=== PATIENT | female | born 1960 | race Caucasian/White ===

== ENCOUNTER 2018-11-10 16:37 | Inpatient (IN) | payer OTHER ==
[~2018-11-10] VITALS: Ht 172.7 cm; Wt 70.9 kg
--- NOTE | ~2018-11-10 | HC ---
[facility] [place] [address] CONSULTATION Name: PAUL LOGAN Reynaldo Room #: 251-P [facility] IN ..#: [id number] Admission: 11/10/18 ������������������ Attend Phys: Federico Shirley MD Discharge: ������������������ Date of : 62 Report #: [id number] THIS REPORT FOR: //name// CC: Federico Shirley [facility] unknown DATE OF SERVICE: 11/26/2018 HISTORY OF PRESENT ILLNESS: The patient is a 57-year-old white female who tripped on a cat, her left chest wall and a dresser. She was admitted with complaint of weakness and had some recent diarrhea and had 4 shots of vodka. She was noted to have presyncope with multiple left rib fractures. She had pulmonary infiltrates developed respiratory failure and ended up being intubated on 11/14/2018. She was noted to have pneumonia, ARDS, CHF. She is noted to have MSSA pneumonia. She has had problems with encephalopathy, thought to be toxic metabolic. She was seen by Psychiatry. Did not appear in withdrawal when seen by Psychiatry with the length of her hospital stay, but low dose Respirdal was recommended to help. She was intubated from 11/14/2018 through 11/25/2018 and has now been extubated, continues in the ICU, was on nasal prong O2. She has had some recent agitation/combativeness and currently has a sitter in place. We are seeing her in rehabilitation medicine consultation. PAST MEDICAL HISTORY: Bipolar disorder, borderline personality, ADHD, severe anxiety. MEDICATIONS: Please see the full medication listing. This includes vitamins, herbals, and supplements per report. HABITS: Daily tobacco usage apparently 1-2 cigarettes per day. ETOH is 1-4 drinks per day. SOCIAL HISTORY: Noted to live in a house alone, 2-3 steps and laundry in the basement. She is noted to be disabled with mental health issues and ETOH issues. She is estranged from family including her sister and her son. Apparently is on the verge of losing her house. Review of systems notes her chest wall pain is better. REVIEW OF SYSTEMS: No complaints of abdominal discomfort. Current shortness of breath, focal extremity pain complaints. PHYSICAL EXAMINATION: GENERAL: A 57-year-old white female seen in the intensive care unit. She has a sitter in place. VITAL SIGNS: Temperature 36.3, pulse 75, respirations 18, blood pressure 127/71. The patient is sleepy, but easily will arouse. [address] [address] CONSULTATION Name: PAUL LOGAN Room #: 251-P [facility] IN [facility]#: [id number] Admission: 11/10/18 ������������������ Attend Phys: Federico Shirley MD Discharge: ������������������ Date of : 62 Report #: [id number] NEUROLOGIC: She was incorrect regarding the name of the hospital. In correct regarding the year. She does follow basic 1 step commands. EXTREMITIES: Functional range of motion of the upper extremity, strength is a grade 4-/5. Lower extremities, no focal calf swelling, functional range of motion with strength grade 4-/5. ASSESSMENT: A 57-year-old white female with the following problems: 1. Toxic metabolic encephalopathy. 2. Dysphagia, currently on mechanical soft with nectar thickened liquids. 3. Prolonged respiratory failure with prolonged intubation, mechanical ventilation. 4. Pneumonia MSSA. 5. Acute respiratory distress syndrome. 6. Congestive heart failure. 7. Multiple left rib fractures after original fall against a dresser. 8. Bipolar disorder. 9. History of borderline personality. 10. Attention deficit hyperactivity disorder. 11. History of severe anxiety. 12. ETOH abuse. 13. Tobacco abuse. PLAN: Physical therapy is to evaluate. She currently has one-on-one sitter currently in the intensive care unit. Social support limited in home setting. We will be glad to follow along regarding rehab therapy issues. ��������������������������������������������� ���������������������������������������� By: ��������������������������������������������� 1051 [id number] Julio Jimenez MD /PMT
[~2018-11-10 16:37] MED LIST: BUPROPION XL150 MG PO; CLONAZEPAM 0.50.5 M1 PO; COREG6.25 MG PO
[2018-11-10 16:43] VITALS: BP 151/87
[2018-11-10] MEDS ORDERED: LISINOPRIL10 MG PO (16:50)
[2018-11-10 17:49] LABS: HEMATOCRIT 41.7 % (37.0-47.0); HEMOGLOBIN 14.8 gm/dL (12.0-15.0); MCH 33.2 pg (26.0-34.0); MCHC 35.4 g/dL (28.0-37.0); MCV 93.7 fL (80.0-100.0); RBC 4.45 mil/uL (4.20-5.00); RDW 14.8 % (10.5-14.5); WBC 8.9 thou/uL (4.0-11.0)
[2018-11-10 18:02] LABS: CALCIUM 9.4 mg/dL (8.5-10.1); CREATININE 1.2 mg/dL (0.6-1.0); POTASSIUM 3.5 mmol/L (3.5-5.1)
[2018-11-10 19:14] VITALS: BP 105/69
[2018-11-10 19:21] VITALS: BP 110/70
[2018-11-10 19:54] VITALS: BP 146/84
[2018-11-10] MEDS ORDERED: ZOLOFT25 MG PO (20:26)
[2018-11-11 00:39] VITALS: BP 146/84
[2018-11-11 00:45] VITALS: BP 157/101
--- NOTE | 2018-11-11 04:12 | NUR ---
PT ARRIVED UNIT AT ABOUT 1950. PT A/OX4, VITAL SIGNS STABLE. PT COMPLAINED OF SEVERE PAIN FROM HER FRACTURED RIBS AND SHOULDER. PT VERBALIZED THAT THE PAIN MEDICATIONS GIVEN TO HER IN THE ER DID NOT SEEM TO BE WORKING. ICE, REPOPSITIONING AND DISTRACTING WELL PAIN MEDICATION WAS USED FOR ADEQUATE PAIN MANGEMENT.AT ABOUT 0400, PT VERBALIZED SHE STILL HAD PAIN MUCH PAIN BUT SHE WAS ABLE TO TOLERATE IT BETTER AND REPOSITION HERSELF IN BED. ASSESSMENT CHARTED. ADMISSION PACKET PROVIDED. EDUCATION PROVIDED ABOUT SAFETY MEASURES INVOLVING TELEMETRY MONITORING. PT RESTING COMFORTABLY IN BED. WILL CONTINUE WITH ADEQAUTE PAIN MANAGEMENT. CONTINUE TO MONITOR.
[2018-11-11 04:45] VITALS: BP 126/73
[2018-11-11 04:53] LABS: HEMATOCRIT 37.5 % (37.0-47.0); MCH 32.3 pg (26.0-34.0); MCHC 34.2 g/dL (28.0-37.0); MCV 94.5 fL (80.0-100.0); RBC 3.97 mil/uL (4.20-5.00); RDW 14.8 % (10.5-14.5); WBC 7.9 thou/uL (4.0-11.0)
[2018-11-11 04:59] LABS: CALCIUM 8.4 mg/dL (8.5-10.1); CREATININE 1.2 mg/dL (0.6-1.0); POTASSIUM 3.2 mmol/L (3.5-5.1)
[2018-11-11 05:11] LABS: HEMOGLOBIN 12.8 gm/dL (12.0-15.0)
--- NOTE | 2018-11-11 09:36 | EKG ---
[address] [address] ELECTROCARDIOGRAM REPORT Name: PAUL LOGAN Room #: 209-P ADM IN M.R.#: [id number] ������������������ Admission: 11/10/18 ������������������ Attend Phys: Federico Shirley MD Discharge: ������������������ Date of : 62 Report #: [id number] ����������������������������������������������������������������� [id number] THIS REPORT FOR: //name// [facility] ED Test Date: 2018-11-10 Test Time: 17:42:05 Pat Name: PAUL LOGAN Department: Room: 209 Gender: F Bread Wrapper: DAVID : 1960 Requested By: Nehal Dumont Order Number: [id number] MD: Paco Villanueva Measurements Intervals [place] Rate: 74 P: 42 NC: 166 QRS: 0 QRSD: 96 T: 75 QT: 428 QTc: 475 Interpretive Statements Sinus rhythm Probable left atrial enlargement Abnrm T, consider ischemia, anterolateral lds Compared to ECG 04/16/2016 15:40:43 Left ventricular hypertrophy no longer present Electronically Signed On 11-11-2018 9:36:02 CDT by Paco Villanueva [email or web address] ��������������������������������������������� <ELECTRONICALLY SIGNED> ���������������������������������������� By: Paco Villanueva MD ��������������������������������������������� 11/11/18 0936 41 [id number] Paco Villanueva MD /LUIS
--- NOTE | 2018-11-11 12:18 | 2DMMODE ---
[facility] [address] [place] [address] 2 D/M-MODE ECHOCARDIOGRAM Name: PAUL LOGAN Room #: 209-P [facility]#: [id number] ������������� Admission: 11/10/18 ������������� Attend Phys: Federico Shirley MD Discharge: ��� ������������� ��� Date of : 62 Date of Service: 11/11/18 1218 �� Report #: [id number] �������� ��������������������������������������������[id number] THIS REPORT FOR: //name// APPROVED REPORT Study performed: 11/11/2018 10:47:20 EXAM: Comprehensive 2D, Doppler, and color-flow Echocardiogram Patient Location: Bedside Room #: 209 Status: routine BSA: 1.86 HR: 77 bpm BP: 126/73 mmHg Rhythm: NSR Other Information Study Quality: Adequate Indications Syncope Hypertension/HDD 2D Dimensions RVDd: 35.25 mm IVSd: 11.10 (7-11mm) LVOT Diam: 20.77 (18-24mm) LVDd: 44.49 mm PWd: 10.72 (7-11mm) Ascending Ao: 28.07 (22-36mm) LVDs: 29.34 (25-40mm) Aortic Root: 33.90 mm IVC: 22.00 mm Volumes Left Atrial Volume (Systole) Single Plane 4CH: 36.35 mL Single Plane 2CH: 29.36 mL LA ESV Index: 21.00 mL/m2 Aortic Valve AoV Peak Bulmaro.: 1.50 m/s AO Peak Gr.: 9.00 mmHg LVOT Max P.25 mmHg LVOT Max V: 1.25 m/s MARTELL Vmax: 2.82 cm2 Mitral Valve E/A Ratio: 0.8 MV Decel. Time: 319.15 ms [facility] [address] [place] [address] 2 D/M-MODE ECHOCARDIOGRAM Name: DOREENPAUL L Room #: 209-P [facility]#: [id number] ������������� Admission: 11/10/18 ������������� Attend Phys: Federico Shirley MD Discharge: ��� ������������� ��� Date of : 62 Date of Service: 11/11/18 1218 �� Report #: [id number] �������� ��������������������������������������������[id number] E Max Bulmaro.: 0.82 m/s MV A Bulmaro.: 1.06 m/s MV PHT: 92.55 ms IVRT: 115.34 ms Pulmonary Valve PV Peak Bulmaro.: 0.93 m/s PV Peak Gr.: 3.53 mmHg Pulmonary Vein P Vein S: 0.65 m/s P Vein A: 0.33 m/s P Vein D: 0.35 m/s P Vein A Dur.: 124.6 msec P Vein S/D Ratio: 1.86 Tricuspid Valve TR Peak Bulmaro.: 3.01 m/s TR Peak Gr.: 36.26 mmHg PA Pressure: 46.00 mmHg Left Ventricle The left ventricle is normal size. There is normal LV segmental wall motion. There is normal left ventricular wall thickness. Left ventricular systolic function is normal. The left ventricular ejection fraction is within the normal range. LVEF is 60-65%. Grade I - abnormal relaxation pattern. Right Ventricle The right ventricle is normal size. The right ventricular systolic function is normal. Atria The left atrium size is normal. The right atrium size is normal. Aortic Valve The aortic valve is normal in structure. No aortic regurgitation is present. There is no aortic valvular stenosis. Mitral Valve The mitral valve is normal in structure. Trace mitral regurgitation. No evidence of mitral valve stenosis. Tricuspid Valve The tricuspid valve is normal in structure. There is trace tricuspid regurgitation. Estimated PAP 42 mmHg. Pulmonic Valve [address] [address] 2 D/M-MODE ECHOCARDIOGRAM Name: PAUL LOGAN Reynaldo Room #: 209-P [facility] IN ..#: [id number] ������������� Admission: 11/10/18 ������������� Attend Phys: Federico Shirley MD Discharge: ��� ������������� ��� Date of : 62 Date of Service: 11/11/18 1218 �� Report #: [id number] �������� ��������������������������������������������[id number] The pulmonary valve is normal in structure. There is no pulmonic valvular regurgitation. Great Vessels The aortic root is normal in size. IVC is dilated and collapses <50% with inspiration. Pericardium There is no pericardial effusion. <Conclusion> The left ventricle is normal size. There is normal left ventricular wall thickness. Left ventricular systolic function is normal. Grade I - abnormal relaxation pattern. The right ventricle is normal size. The left atrium size is normal. The aortic valve is normal in structure. Trace mitral regurgitation. There is trace tricuspid regurgitation. Estimated PAP 42 mmHg. ��������������������������������������������� <ELECTRONICALLY SIGNED> ���������������������������������������� By: Paco Villanueva MD ��������������������������������������������� 11/11/18 1218 Paco Villanueva MD /INF
[2018-11-11 12:33] VITALS: BP 136/70
--- NOTE | 2018-11-11 15:11 | NUR ---
Assumed pt care at 7am.Pt in bed very restless related to back and left ribs pain.Medication given as ordered with no relief.Dr Shirley notified,order noted. Additional pain shot given.Around 9:30am,pt piv was not flushing.New piv placed by this rn.One hour later,pt called out and reported that she accidentally dc iv when getting out of bed.Iv team replaced it.30 minutes after,pt called out again and said she accidentally dc iv when combing hair. Dr Shirley notified and he said po med should be given for now and when pt cooperate with keeping piv,dilaudid rip saw operator can be started.Benadryl iv given as needed for itching.Pt in bed sleeping at present.Will continue to monitor.
--- NOTE | 2018-11-11 15:45 | NUR ---
Assumed pt care at 7am.Assessment completed.vss.Pt c/o chest tightness and morphine ivp given as ordered with zofran,partial relief noted.Hayley harkins pediatric np here and order noted.Pt ate breakfast and kept npo for lunch.Family called for updates.At 1530,pt left for gold leaf laborer in stable condition.
[2018-11-11 17:02] VITALS: BP 120/93
[2018-11-11 20:15] VITALS: BP 142/90
[2018-11-12] VITALS (17 sets, daily range): BP systolic 89–147; BP diastolic 43–96
--- NOTE | 2018-11-12 03:43 | NUR ---
ASSUMED PT CARE AT 1900. PT A/OX4, ANXIOUS, VITAL SIGNS STABLE, ASSESSMENT CHARTED. PAIN MANAGED WITH PAIN MEDICATION. PT COMPLAINED OF A BRIEF EPISODE OF SOA, O2 SAT 88%. 2L O2 GIVEN, O2 SAT IMPROVED. PT UNCOMFORTABLE AND DID NOT SEEM TO GET MUCH PAIN RELIEF. REPOSITIONING, ICE PACK USED FOR PAIN RELIEF. PT WAS ABLE TO REST BRIEFLY. FOLLOWING NURSING POC. WILL CONTINUE TO MONITOR.
--- NOTE | 2018-11-12 09:56 | NUR ---
Assess due to high nutrition screening risk trigger. Admitted following fall with rib fractures, syncopal episodes. Hx bipolar, +tobacco, +etoh use. States appetite poor just recently, and wt may be down few pounds. Did not feel like breakfast this am. Would like to trial some Ensure-will order. Otherwise low nutrition risk
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
[2018-11-12 16:17] LABS: BE(vivo) -9.1 mmol/L (-2 to +3); HCO3 19.5 mmol/L (22.0-26.0); PCO2 53.7 mmHg (35.0-45.0); PO2 58.3 mmHg (80.0-100.0); pH 7.179 (7.360-7.450); sO2 82.9 % (92.0-98.0)
[2018-11-12 16:52] LABS: HEMATOCRIT 39.8 % (37.0-47.0); HEMOGLOBIN 13.2 gm/dL (12.0-15.0); MCH 32.4 pg (26.0-34.0); MCHC 33.2 g/dL (28.0-37.0); MCV 97.5 fL (80.0-100.0); RBC 4.08 mil/uL (4.20-5.00); RDW 15.2 % (10.5-14.5); WBC 13.9 thou/uL (4.0-11.0)
--- NOTE | 2018-11-12 17:02 | NUR ---
PT CARE ASSUMED APPROX 0700. PT WAS ALERT AND ORIENTED X4 WITH FORGETFULNESS. DENIES SOA. REPORTS PAIN 10/[address] NARAYANAN ROUNDED EARLY AND INCREASED MEDS TO ATTEMPT ADEQUATE PAIN MANAGEMENT. ATIVAN ALSO GIVEN PER ORDERS. IT WAS NOTED AROUND 1205 THAT PT WAS CYANOTIC AND UNRESPONSIVE. WELFARE SERVICE AIDE OBTAINED VS WHILE NONREBREATHER WAS PLACED TO PT BY NURSE. NARCAN ADMINISTERED. O2 SAT WAS NOTED TO BE IN 50%. SAT REASSESSED WITH DIFFERENT PULSE OXIMETER AND SAT LEVEL WAS CONFIRMED AT 50%. NARCAN STARTED TO TAKE AFFECT, DR NARAYANAN WAS NOTIFIED. ORDERS WERE FOR CONT BEDSIDE PULSE OX AND CXR. R/T CAME TO BEDSIDE TO PLACE. PT RECOVERED IN APPROX 15 MIN. SAT WAS MAINTAINED AT 91-94% ON 15L NONREBREATHER. PT EASILY AROUSABLE AT THIS TIME. BREATHS REMAIN SHALLOW. AT APPROX 1550 WAS PAGED AGAIN BECAUSE DESPITE PT BEING AWAKE AND BREATHING MORE ADEQUATELY THAN BEFORE HER O2 SAT BEGAN TO DROP AND SUSTAIN IN LOW 80S. DR NARAYANAN ORDERED ABGs. ABGs CRITICAL WITH NOTED RESP ACIDOSIS. BIPAP AND ICU TRANSFER ORDERED. MESSAGE LEFT FOR ICU TO CALL CCU FOR REPORT WHEN AVAILABLE. ON BIPAP AT THIS TIME. PT CLINICALLY STABLE. PT WAS ALSO HYPERTENSIVE VS OTHERWISE STABLE. DR NARAYANAN WAS NOTIFIED OF OF ELEVATED BP AND LACK OF URINE OUTPUT. EMERGENCY CONTACT RAY WAS CALLED AND GIVEN CLINICAL UPDATE AND ICU BED NUMBER. HE DENIES QUESTIONS OR CONCERNS AT THIS TIME. RAY AT BEDSIDE AT THIS TIME. BP ALSO WNL AT THIS TIME. PT MORE ALERT. DOES NOT APPEAR TO BE IN PAIN AT THIS TIME.
[2018-11-12 17:06] LABS: CREATININE 0.8 mg/dL (0.6-1.0); POTASSIUM 4.7 mmol/L (3.5-5.1)
[2018-11-12 19:01] LABS: URINE BILIRUBIN NEGATIVE (Negative); URINE BLOOD 1+ (Negative); URINE CLARITY CLEAR; URINE COLOR YELLOW; URINE GLUCOSE-RANDOM* 2+ (Negative); URINE KETONES TRACE (Negative); URINE LEUKOCYTES-REFLEX NEGATIVE (Negative); URINE NITRITE-REFLEX NEGATIVE (Negative); URINE PROTEIN (DIPSTICK) TRACE (Negative); URINE SPECIFIC GRAVITY >= 1.030 (1.005-1.035); URINE UROBILINOGEN 0.2 E.U./dl (0.2-1.0)
[2018-11-12 19:08] LABS: BACTERIA-REFLEX >30 Many /HPF (None Seen); SQUAMOUS 0-3 Few /LPF (0-3); URINE RBC 0-2 Rare /HPF (0-2); URINE WBC-REFLEX 0-5 Rare /HPF (0-5)
[2018-11-12 19:09] LABS: CRYSTALS None Seen /LPF (None Seen); HYALINE CASTS 0-3 Few /LPF (None Seen)
[2018-11-12 23:36] LABS: BE(vivo) -2.8 mmol/L (-2 to +3); HCO3 22.5 mmol/L (22.0-26.0); PCO2 40.7 mmHg (35.0-45.0); PO2 50.8 mmHg (80.0-100.0); sO2 84.7 % (92.0-98.0)
[2018-11-13] VITALS (38 sets, daily range): BP systolic 86–124; BP diastolic 43–95
[2018-11-13 04:35] LABS: ABSOLUTE NEUTROPHILS 6.5 thou/uL (1.4-8.2); BASOPHILS 0.2 % (0.0-2.0); EOSINOPHILS 0.2 % (0.0-3.0); HEMATOCRIT 31.3 % (37.0-47.0); LYMPHOCYTES 6.9 % (24.0-44.0); MCH 33.3 pg (26.0-34.0); MCHC 34.4 g/dL (28.0-37.0); MCV 96.9 fL (80.0-100.0); MONOCYTES 2.6 % (1.0-8.0); PLATELET COUNT 149 thou/uL (150-400); POLYS 90.1 % (36.0-66.0); RBC 3.23 mil/uL (4.20-5.00); RDW 14.8 % (10.5-14.5); WBC 7.3 thou/uL (4.0-11.0)
[2018-11-13 04:38] LABS: HEMOGLOBIN 10.8 gm/dL (12.0-15.0)
[2018-11-13 06:20] LABS: CALCIUM 8.4 mg/dL (8.5-10.1); POTASSIUM 4.2 mmol/L (3.5-5.1)
--- NOTE | 2018-11-13 07:29 | NUR ---
PATIENT TRANFERRED TO ICU; DUE TO CHANGE IN STATUS, ON HOLD FOR OCCUPATIONAL THERAPY; NEED NEW PHYSICIAN ORDERS IF/WHEN APPROPRIATE.
--- NOTE | 2018-11-13 07:52 | NUR ---
PT ARRIVED IN ICU FROM CCU AT SHIFT CHANGE. PT ON BIPAP WITH 100% FIO2. SHORTLY AFTER ARRIVAL, PT BECAME MORE ALERT, C/O PAIN AND ASKING FOR SOMETHING TO DRINK. FIO2 TITRATED DOWN TO 40% WITHIN TWO HOURS. PT WANTED BIPAP OFF AND WAS TRIED ON HIGH FLOW CANNULA AT 12L O2. ABG OBTAINED AN HOUR LATER AND PO2 CRITICALLY LOW. PT PLACED ON NRB MASK AT 15L IN ADDITION TO NASAL CANNULA. PT WOULD PULL NRB MASK OFF AT TIMES AND O2 WOULD DESAT QUICKLY. PT BECAME MORE CONFUSED THIS MORNING AND CONTINUED TO PULL MASK OFF ALONG WITH OTHER MEDICAL EQUIPMENT. PT PLACED BACK ON BIPAP WITH 80% FIO2. PT PUT IN BILATERAL SOFT WRIST RESTRAINTS AFTER PULLING OFF BIPAP MASK. PT GIVEN NORCO X2 OVERNIGHT FOR PAIN. ONETIME ORDER OF TORADOL OBTAINED FROM SYSTEM ENGINEER AND GIVEN TO PT, WITH SOME RELIEF. WILL CONTINUE TO MONITOR.
--- NOTE | 2018-11-13 07:57 | NUR ---
ORDERS RECEIVED FOR EVAL AND TREAT HOWEVER Pt HAS NOW TRANSFERRED TO ICU. WILL PLACE ON HOLD AND AWAIT NEW ORDERS TO RESUME WHEN APPROPRIATE
[2018-11-13 12:40] LABS: ABSOLUTE NEUTROPHILS 6.2 thou/uL (1.4-8.2); BASOPHILS 0.3 % (0.0-2.0); EOSINOPHILS 0.4 % (0.0-3.0); HEMATOCRIT 30.8 % (37.0-47.0); HEMOGLOBIN 10.7 gm/dL (12.0-15.0); LYMPHOCYTES 6.5 % (24.0-44.0); MCH 33.6 pg (26.0-34.0); MCHC 34.7 g/dL (28.0-37.0); MCV 96.9 fL (80.0-100.0); MONOCYTES 3.3 % (1.0-8.0); PLATELET COUNT 147 thou/uL (150-400); POLYS 89.5 % (36.0-66.0); RBC 3.17 mil/uL (4.20-5.00); RDW 14.9 % (10.5-14.5)
[2018-11-13 13:01] LABS: CALCIUM 8.4 mg/dL (8.5-10.1); CREATININE 0.9 mg/dL (0.6-1.0); POTASSIUM 3.7 mmol/L (3.5-5.1)
[2018-11-13 13:05] LABS: ALBUMIN 2.6 g/dL (3.4-5.0); MAGNESIUM 1.6 mg/dL (1.8-2.4); PHOSPHORUS 3.1 mg/dL (2.5-4.9); TOTAL PROTEIN 5.7 g/dL (6.4-8.2)
[2018-11-13 13:22] LABS: FOLIC ACID 3.6 ng/mL (8.6-58.9)
[2018-11-13 13:40] LABS: URINE BLOOD 3+ (Negative); URINE COLOR YELLOW; URINE GLUCOSE-RANDOM* NEGATIVE (Negative); URINE KETONES NEGATIVE (Negative); URINE LEUKOCYTES TRACE (Negative); URINE NITRITE POSITIVE (Negative); URINE PROTEIN (DIPSTICK) 1+ (Negative); URINE SPECIFIC GRAVITY >= 1.030 (1.005-1.035)
[2018-11-13 13:43] LABS: ICTOTEST (BILI CONFIRMATORY) Negative (Negative); URINE BILIRUBIN NEGATIVE (Negative); URINE CLARITY SL HAZY
[2018-11-13 13:48] LABS: SQUAMOUS 0-3 Few /LPF (0-3); URINE WBC 6-15 Few /HPF (0-5)
[2018-11-13 13:49] LABS: BACTERIA >30 Many /HPF (None Seen); CASTS None Seen /LPF (None Seen); CRYSTALS None Seen /LPF (None Seen)
--- NOTE | 2018-11-13 14:07 | NUR ---
ASSUMED CARE AT 0700. AT SHIFT CHANGE PT WAS ABLE TO STATE NAME AND THAT SHE WAS IN HOSPITAL. PT WAS VERY AGITATED AND IN PAIN. PT GIVEN MEDICATION FOR BOTH ORDERED. PT THEN SLEPT FROM APPROXIMATELY 0930 TO 1215. WHEN PT WOKE UP SHE WAS VERY AGITATED AGAIN AND STATING SHE DOESN'T KNOW WHERE SHE IS AT. PT REORIENTED TO SITUATION BUT PT STILL SEEMS VERY AGITATED. PT BEGAN TRYING TO PULL AT CHÁVEZ CATHETER. PT WAS ABLE TO GET SCD'S OFF WITH USE OF HER LEGS AND FEET. PT HAS BILAT SOFT WRIST RESTRAINTS IN PLACE. EVEN WITH RESTRAINTS ON PT MANAGED TO PULL STAT LOCK OFF OF LEG X2. PT ALSO PULLED FINGER PULSE OX PROBE OFF. NEW PULSE OX PROBE PLACED ON L EAR. RN ATTEMPTED TO START NEW IV BUT PT BEGAN MOVING HER ARM AND TRYING TO HIT. CWAL ASSESSED AND PT GIVEN 1MG ATIVAN ORDERED. WILL ATTEMPT IV ONCE PT IS CALMER. PT ALSO KICKED SHEET OFF AND BEGAN EXPOSING HERSELF. GOWN READJUSTED TO COVER PT AND SHEET PLACED OVER LOWER PORTION OF HER BODY. PT KICKED SHEET OFF AGAIN AND STATED "I DO NOT CARE WHAT I SHOW". WILL CONTINUE TO CLOSELY MONITOR PT. VSS.
--- NOTE | 2018-11-13 16:35 | NUR ---
PT'S FRIEND AURE AND A FEMALE FRIEND STOPPED BY TO VISIT PT. AURE STATED EARLIER ON PHONE THAT THE PT DRINKS MAYBE 2 DRINKS A DAY. FEMALE FRIEND STATES SHE IS THE PT'S NEIGHBOR AND HAS KNOWN PT FOR 11 YEARS. FEMALE STATES SHE IS WORRIED ABOUT PT WITHDRAWLING FROM ALCOHOL AND THAT THE PT DRINKS HEAVILY AT HOME DAILY.
[2018-11-14] VITALS (36 sets, daily range): BP systolic 84–144; BP diastolic 46–92
[2018-11-14 00:01] LABS: BE(vivo) -3.1 mmol/L (-2 to +3); HCO3 21.1 mmol/L (22.0-26.0); PO2 66.8 mmHg (80.0-100.0); pH 7.399 (7.360-7.450); sO2 93.4 % (92.0-98.0)
[2018-11-14 04:57] LABS: CALCIUM 8.3 mg/dL (8.5-10.1); CREATININE 0.9 mg/dL (0.6-1.0); POTASSIUM 3.8 mmol/L (3.5-5.1)
--- NOTE | 2018-11-14 08:03 | NUR ---
ON BIPAP OVERNIGHT. ON CIWA PROTOCOL AND ON PRECEDEX GTT FOR SEDATION. UPON FIRST ASSESSMENT, PT WAS RESTLESS, ANXIOUS, AND SLIGHTLY CONFUSED/DISORIENTED. BY MN, PT HAD BECOME EXTREMELY RESTLESS, AGITATED, AND COMBATIVE. ABG OBTAINED PER O2 PROTOCOL, WITH NO CRITICALS. DR. MAYA CALLED AND NOTIFIED OF PT'S WORSENING CONDITION. ORDERS FOR FENTANYL, MORPHINE, AND HALDOL PRN RECEIVED. PT REQUIRED MULTIPLE OF THESE PRN MEDICATIONS BEFORE CALMING DOWN SOME, THEN WOULD RETURN TO BEING RESTLESS AND AGITATED 45 MINUTES LATER. WHEN PT WOULD HAVE ANOTHER OUTBURST, PT WAS NOT EASILY SEDATED. PT TACHYPNEIC AND BREATHING LABORED. LUNGS COARSE. PT HAD A CONGESTED COUGH, BUT WAS UNABLE TO COUGH UP ANY SECRETIONS. PT APPEARS EXHAUSTED AND DELIRIOUS. PT DECLINING; CURRENT TREATMENTS ARE NOT EFFECTIVE FOR PT. WILL CONTINUE TO MONITOR.
[2018-11-14 10:42] LABS: BE(vivo) -4.1 mmol/L (-2 to +3); PCO2 38.6 mmHg (35.0-45.0); PO2 72.1 mmHg (80.0-100.0); pH 7.354 (7.360-7.450); sO2 93.9 % (92.0-98.0)
[2018-11-14 14:26] LABS: CALCIUM 8.5 mg/dL (8.5-10.1); CREATININE 0.8 mg/dL (0.6-1.0); POTASSIUM 3.3 mmol/L (3.5-5.1)
[2018-11-14 14:27] LABS: MAGNESIUM 1.3 mg/dL (1.8-2.4)
--- NOTE | 2018-11-14 14:33 | NUR ---
VAT CONSULTED FOR A PICC IN THIS PT, SHE WAS TO BE INTUBATED AND WAS NOT ABLE TO CONSENT. A 5FRTLPICC PLACED AND CXR REVEALS TIP AT [facility]. PLEASE SEE INSERTION NOTE FOR DETAILS
--- NOTE | 2018-11-14 15:02 | HC ---
[facility] [place] [address] CONSULTATION Name: PAUL LOGAN Room #: [facility] IN ..#: [id number] Admission: 11/10/18 ������������������ Attend Phys: Federico Shirley MD Discharge: ������������������ Date of : 62 Report #: [id number] THIS REPORT FOR: //name// CC: Federico WOMACK unknown TYPE OF REPORT: Pulmonary consultation. REFERRING PHYSICIAN: Federico Shirley M.D. REASON FOR REFERRAL: Acute hypoxic hypercapnic respiratory failure. HISTORY OF PRESENT ILLNESS: The patient is a 57-year-old white female who was brought to the ED on 11/10/2018 following a fall. Since admission, the patient was found to be hypoxic, on BiPAP. A Pulmonary consultation was requested. There is some discrepancy of how the patient fell. According to the patient, she tripped over a cat, hit a marble dresser and hit her left chest. Chest x-ray revealed multiple left-sided rib fractures. Yesterday, she was given pain medications for pain control. Subsequently, she became quite somnolent with hypoxia. Arterial blood gas suggests hypoxic hypercapnic respiratory failure. The patient also notes that she does drink vodka about 4 shots a day. She denies any history of alcohol use. When she was transferred last evening to the ICU, she was found to be confused, restless, somewhat agitated, requiring sedation. She is currently on Precedex drip. PAST MEDICAL HISTORY: Notable for bipolar disorder, attention deficit disorder, borderline personality disorder and hypertension. PAST SURGICAL HISTORY: Two prior arthroscopic surgeries involving the jaw. ALLERGIES: None to medications. HOME MEDICATIONS: Reported home medications include clonazepam, bupropion, Zestril and Coreg. FAMILY HISTORY: Noncontributory. SOCIAL HISTORY: The patient does smoke everyday, amount unknown. Alcohol use as mentioned above. REVIEW OF SYSTEMS: Deferred as the patient is quite somnolent at this time. PHYSICAL EXAMINATION: [facility] [address] [place] [address] CONSULTATION Name: PAUL LOGAN Room #: [address] [place] [address]#: [id number] Admission: 11/10/18 ������������������ Attend Phys: Federico Shirley MD Discharge: ������������������ Date of : 62 Report #: [id number] GENERAL: She appears to be comfortable, tolerating BiPAP. VITAL SIGNS: Temperature is 99 degrees Fahrenheit, pulse 95, respiratory rate is 22, blood pressure 109/60 mmHg and saturation 98%. HEENT: Normocephalic and atraumatic. NECK: Supple, without any lymphadenopathy or thyromegaly. CHEST: Breath sounds are fair due to poor effort. No obvious rales or wheezes. CARDIOVASCULAR: Normal S1 and S2. No murmurs or gallop. There is no JVD. There is no carotid bruit. Pulses are 2+/4+ bilaterally. ABDOMEN: Soft and nontender. No organomegaly or masses felt. GENITOURINARY: Deferred. RECTAL: Deferred. EXTREMITIES: There is no edema, cyanosis or clubbing. RADIOLOGICAL DATA: CT head was grossly unremarkable. Rib series revealed nondisplaced left 5th through 9th rib fractures. Echocardiogram was grossly unremarkable, pulmonary artery pressure measured 42 mmHg. Chest x-ray: Small lung volumes, otherwise no obvious infiltrates or effusion. LABORATORY DATA: Blood alcohol level was less than 10. Electrolytes are normal. Liver enzymes are grossly unremarkable. WBC 7000, hemoglobin 10.7 and platelets are mildly decreased. No evidence of bandemia. Arterial blood gas revealed pH 7.17, pCO2 of 53, pO2 of 58 on 6 liters of O2. Albumin 2.6. IMPRESSION: 1. Acute hypercapnic hypoxic respiratory failure in this 57-year-old white female due to hypoventilation related to sedation. She was recently given narcotics including Dilaudid. She has a history of tobacco use, it is unknown whether she has chronic obstructive pulmonary disease. 2. Recent fall, mechanism of fall unclear, sustaining multiple left-sided rib fractures. 3. History of tobacco use. No history of chronic obstructive pulmonary disease. 4. Alcohol use. 5. Hypertension. 6. Bipolar disorder along with borderline personality disorder. 7. Attention deficit hyperactivity disorder. RECOMMENDATIONS: Agree with BiPAP. Wean O2 for saturation 90%. We would try to minimize narcotics if possible. In terms of her recent altered mental status, whenever the patient may have a component of alcohol withdrawal. Alcohol withdrawal prophylaxis will be helpful if she continues to be encephalopathic. DVT and GI prophylaxis recommended. Given rib fractures, alcohol use, the patient is at risk for worsening pulmonary [address] [address] CONSULTATION Name: DAMON LOGANMiranda Jacobs Room #: 241-P [facility] IN ..#: [id number] Admission: 11/10/18 ������������������ Attend Phys: Federico Shirley MD Discharge: ������������������ Date of : 62 Report #: [id number] compromise. This would include atelectasis, pulmonary contusion, respiratory tract infection, etc. We will follow closely. Thank you for this consultation. Critical care 1 hour. ��������������������������������������������� <ELECTRONICALLY SIGNED> ���������������������������������������� By: Jonathan Bañuelos MD ��������������������������������������������� 11/14/18 1502 1321 0051 Jonathan Bañuelos MD /nt
[2018-11-14 16:31] LABS: BE(vivo) -0.4 mmol/L (-2 to +3); HCO3 23.6 mmol/L (22.0-26.0); PCO2 36.3 mmHg (35.0-45.0); PO2 95.9 mmHg (80.0-100.0); pH 7.431 (7.360-7.450); sO2 97.5 % (92.0-98.0)
[2018-11-14 23:42] LABS: MAGNESIUM 2.3 mg/dL (1.8-2.4); POTASSIUM 3.4 mmol/L (3.5-5.1)
[2018-11-15] VITALS (36 sets, daily range): BP systolic 86–144; BP diastolic 49–119
[2018-11-15 05:25] LABS: BE(vivo) -3.3 mmol/L (-2 to +3); HCO3 21.2 mmol/L (22.0-26.0); PCO2 36.2 mmHg (35.0-45.0); PO2 59.5 mmHg (80.0-100.0); pH 7.386 (7.360-7.450); sO2 90.7 % (92.0-98.0)
[2018-11-15 06:09] LABS: HEMATOCRIT 26.2 % (37.0-47.0); HEMOGLOBIN 9.1 gm/dL (12.0-15.0); MCH 33.2 pg (26.0-34.0); MCHC 34.6 g/dL (28.0-37.0); MCV 95.7 fL (80.0-100.0); RBC 2.74 mil/uL (4.20-5.00); RDW 14.8 % (10.5-14.5); WBC 11.3 thou/uL (4.0-11.0)
[2018-11-15 06:35] LABS: CALCIUM 8.8 mg/dL (8.5-10.1); CREATININE 0.8 mg/dL (0.6-1.0); POTASSIUM 3.5 mmol/L (3.5-5.1)
--- NOTE | 2018-11-15 07:44 | NUR ---
PT INTUBATED AND ON VENT. SEDATED WITH PROPOFOL AND PRECEDEX GTTS. PT HAD ONE EPISODE OF SEVERE ANXIETY AND AGITATION AT THE BEGINNING OF THE NIGHT, PT WAS GIVEN HALDOL AND PROPOFOL GTT WAS TITRATED UP. PT REMAINED MODERATELY SEDATED AND CALM THE REMAINEDER OF THE NIGHT, EXCEPT WHEN REPOSITIONED/TURNED. PT FEBRILE AT THE BEGINNING OF THE NIGHT. ORDER FOR TYLENOL OBTAINED FROM Mata MCDUFFIE NP. TYLENOL GIVEN AND COOLING METHODS USED TO BRING TEMP DOWN. POTASSIUM REPLACED PER PROTOCOL. NO OTHER MAJOR EVENTS OVERNIGHT. WILL CONTINUE TO MONITOR.
[2018-11-16] VITALS (31 sets, daily range): BP systolic 91–126; BP diastolic 44–79
[2018-11-16 04:42] LABS: CALCIUM 8.7 mg/dL (8.5-10.1); CREATININE 0.8 mg/dL (0.6-1.0)
[2018-11-16 04:45] LABS: HEMATOCRIT 25.2 % (37.0-47.0); HEMOGLOBIN 8.7 gm/dL (12.0-15.0); MCHC 34.6 g/dL (28.0-37.0); MCV 95.6 fL (80.0-100.0); RBC 2.64 mil/uL (4.20-5.00); RDW 15.3 % (10.5-14.5); WBC 12.8 thou/uL (4.0-11.0)
[2018-11-16 05:25] LABS: BE(vivo) -1.4 mmol/L (-2 to +3); PCO2 36.7 mmHg (35.0-45.0); PO2 107.6 mmHg (80.0-100.0); pH 7.414 (7.360-7.450)
--- NOTE | 2018-11-16 06:37 | NUR ---
ASSUMED CARE OF PT AT 1900. PT SEDATED ON PROPOFOLA AND VERSED GTT. PT BECOMES RESTLESS ON SEDATION VACATION. PT HYPOTENSIVE AT TIMES R/T SEDATION MEDS. LOW GRADE FEVER THROUGH OUT SHIFT. DESPITE TYLENOL PER TUBE GIVEN. PT DOES HAVE SOME ACCESSORY MUSCLE USE WHEN BREATHING. MORNING LABS REVIEWED.
[2018-11-16 15:43] LABS: URINE BLOOD NEGATIVE (Negative); URINE CLARITY CLEAR; URINE COLOR YELLOW; URINE GLUCOSE-RANDOM* NEGATIVE (Negative); URINE KETONES NEGATIVE (Negative); URINE LEUKOCYTES NEGATIVE (Negative); URINE NITRITE NEGATIVE (Negative); URINE PROTEIN (DIPSTICK) 1+ (Negative)
[2018-11-16 15:45] LABS: ICTOTEST (BILI CONFIRMATORY) Negative (Negative); URINE BILIRUBIN NEGATIVE (Negative)
[2018-11-16 16:02] LABS: BACTERIA None Seen /HPF (None Seen); COARSE GRANULAR CASTS 0-3 Few /LPF (None Seen); CRYSTALS None Seen /LPF (None Seen); SQUAMOUS None Seen /LPF (0-3); URINE RBC None Seen /HPF (0-2); URINE WBC None Seen /HPF (0-5)
[2018-11-17] VITALS (23 sets, daily range): BP systolic 94–165; BP diastolic 51–94
--- NOTE | 2018-11-17 04:36 | NUR ---
NO NEW CHANGES. PT REMAINS RESTLESS AND USES ACCESSORY MUSCLES TO BREATHE. ASSESSMENTS AND VITAL SIGNS CHARTED. 1 BM TONIGHT. TUBE FEEDINGS STARTED. PT. REMAINS HEMODYNAMICALLY STABLE AND MAINTAINS OXYGENATION THROUGH VENTILATION. MEDICATION TITRATION CHARTED. WILL CONTINUE TO MONITOR.
[2018-11-17 05:29] LABS: CALCIUM 8.7 mg/dL (8.5-10.1); CREATININE 0.7 mg/dL (0.6-1.0); POTASSIUM 3.7 mmol/L (3.5-5.1)
[2018-11-17 05:41] LABS: HEMATOCRIT 24.2 % (37.0-47.0); HEMOGLOBIN 8.4 gm/dL (12.0-15.0); MCH 33.1 pg (26.0-34.0); MCHC 34.7 g/dL (28.0-37.0); MCV 95.5 fL (80.0-100.0); RBC 2.54 mil/uL (4.20-5.00); RDW 15.9 % (10.5-14.5)
[2018-11-17 05:41] LABS: BE(vivo) 2.4 mmol/L (-2 to +3); HCO3 26.5 mmol/L (22.0-26.0); PCO2 39.1 mmHg (35.0-45.0); PO2 73.1 mmHg (80.0-100.0); pH 7.449 (7.360-7.450); sO2 95.3 % (92.0-98.0)
--- NOTE | 2018-11-17 10:25 | NUR ---
started on enteral nutrition
--- NOTE | 2018-11-17 10:32 | NUR ---
VASCULAR ACCESS CONSULTED FOR SECOND PICC LINE BUT PIV STARTED, SO 2ND LINE ON HOLD FOR NOW. DISCUSSED RUNNING VESICANT/IRRITANT MEDS THRU PICC AND ABX FOR PIV WITH PRIMARY RN
--- NOTE | 2018-11-17 16:19 | NUR ---
SHIRLEY reviewed chart and spoke with attending physician. Pt remains intubated and sedated. SW left voice message for pt's friend, Pawel ([phone]) to obtain info regarding pt's prior level of functioning and social situation. Awaiting call back at this time. SHIRLEY is following to assist as needed with discharge planning.
--- NOTE | 2018-11-17 20:26 | NUR ---
PATIENT RESTING ON THE VENTILATOR, SETTINGS UNCHANGED TODAY. VERSED DECREASED TO 2 MG PER HOUR, PROPHOL TAPPERED PRECIDEX WAS INITIATED. PATIENT MORE AGGITATED THIS EVENING. ETT SUCTIONED PRN FOR THICK DAS SECRETIONS. ORAL CARE GIVEN. TUBE FEEDING INCREASED TO GOAL RESIDUALS ARE LOW.
[2018-11-18] VITALS (58 sets, daily range): BP systolic 95–161; BP diastolic 53–109
[2018-11-18 05:03] LABS: HEMATOCRIT 23.6 % (37.0-47.0); HEMOGLOBIN 8.3 gm/dL (12.0-15.0); MCHC 34.9 g/dL (28.0-37.0); MCV 94.4 fL (80.0-100.0); RBC 2.5 mil/uL (4.20-5.00); RDW 16.1 % (10.5-14.5); WBC 11.8 thou/uL (4.0-11.0)
[2018-11-18 05:15] LABS: CREATININE 0.6 mg/dL (0.6-1.0); POTASSIUM 3.8 mmol/L (3.5-5.1)
[2018-11-18 05:42] LABS: BE(vivo) 1.5 mmol/L (-2 to +3); HCO3 25.4 mmol/L (22.0-26.0); PCO2 37.1 mmHg (35.0-45.0); PO2 63.1 mmHg (80.0-100.0); pH 7.453 (7.360-7.450); sO2 93.3 % (92.0-98.0)
--- NOTE | 2018-11-18 07:38 | NUR ---
PT MODERATELY SEDATED ON THE VENT, PT GETS RESTLESS WITH LIGHT SEDATION AND VITAL SIGNS BECOMES UNSTABLE. VENT SETTINGS ARE UNCHANGED, TUBE FEEDING IS AT GOAL, MINIMAL RESIDUALS.
--- NOTE | 2018-11-18 14:45 | NUR ---
BEDSIDE BRONCHOSCOPY PREFORMED AT BEDSIDE BY DR JUAREZ MEDICALLY NECESSITATED. SEDATION INCREASED FOR THE PROCEDURE AND TAPPERED DOWN AFTER THE PROCEDURE. MONITOR STRIP FROM [address] JUAREZ[address] MAGNESIUM LEVEL DRAWN. PATIENT TOLERATED THE PROCEDURE WITHOUT INCIDENT.
--- NOTE | 2018-11-18 18:45 | NUR ---
SHIFT SUMMARY. PATIENT RESTING QUIETLY AT PRESENT WITH SEDATION. VENT SETTINGS CHANGED PER ORDER TO MAINTAIN O2 SAT GREATER THAN 92%. MONITOR NOW SHOWING NSR WITH OCC PAC'S NOTED. MAGNESIUM LEVEL WAS NOTED TO BE IN NORMAL RANGE.
[2018-11-19] VITALS (47 sets, daily range): BP systolic 94–174; BP diastolic 62–121
[2018-11-19 06:12] LABS: HEMATOCRIT 23.9 % (37.0-47.0); HEMOGLOBIN 8.1 gm/dL (12.0-15.0); MCH 32.7 pg (26.0-34.0); MCHC 34.1 g/dL (28.0-37.0); MCV 95.9 fL (80.0-100.0); RBC 2.49 mil/uL (4.20-5.00); RDW 16.3 % (10.5-14.5); WBC 12.3 thou/uL (4.0-11.0)
[2018-11-19 06:21] LABS: CALCIUM 8.6 mg/dL (8.5-10.1); CREATININE 0.6 mg/dL (0.6-1.0); POTASSIUM 3.9 mmol/L (3.5-5.1)
--- NOTE | 2018-11-19 07:30 | NUR ---
PT INTUBATED AND ON VENT. PROPOFOL, PRECEDEX, AND VERSED GTTS USED FOR SEDATION. PROPOFOL GTT TITRATED DOWN SOME, BUT PT CAN NOT TOLERATE SIGNIFICANT LOWERING OF SEDATION. WITH ANY STIMULATION, SUCH SUCTIONING OR REPOSITIONING, PT BECOMES RESTLESS AND AGITATED. PT RESPONDS TO PAIN, BUT DOES NOT FOLLOW COMMANDS. PT NOT PROGRESSING TOWARDS GOALS. WILL CONTINUE TO MONITOR.
--- NOTE | 2018-11-19 16:08 | NUR ---
SHIRLEY reviewed chart and spoke with nursing and attending physician. Pt remains intubated and in restraints. Pt to hopefully start cpap trials soon. SHIRLEY met with pt and friend, Jenn Claros, at bedside. Introduced role of SHIRLEY. Pt's friend states she has known pt for many years. Pt's contact listed is Pawel is a intermodal dispatcher friend/boyfriend. Pt lives at home alone in a house. Prior to admission, pt was independent with ADLs. No use of DME. Pt is on disability. Jenn is unsure of pt's PCP, but knows that pt does see a PCP for management of BP. Pt has hx of depression and anxiety and has been trying to find a new psychiatrist. Pt enjoys gardening and doing artwork. Pt does have hx of ETOH use: vodka and smokin-2 cigarettes per day. Per Jenn, pt's ETOH has increased recently. Pt has been estranged from family for many years. Jenn placed on pt's contact list ([phone]). Awaiting pt to be extubated and have therapy evaluate pt for discharge needs. SHIRLEY is following to assist as needed with discharge planning.
--- NOTE | 2018-11-19 17:39 | NUR ---
ASSUMED CARE OF PT AT APPROX 0700. PT REMAINS SEDATED CURRENTLY. MONITORED ON TELEMETRY AND ABLE TO MAINTAIN 02 SAT > 90 ON VENTILATOR SETTINGS. NO SIGNS OF PAIN CURRENTLY. WAS ABLE TO WEAN PT OFF PRECEDEX GTT. STILL REMAINS ON VERSED AND PROPOFOL FOR SEDATION. PT TOLERATED WEAN OF PRECEDEX THUS FAR. PT IN RESTRAINTS. ORDER RECIEVED TO CONTINUE. TURNING PT TO MAINTAIN SKIN INTEGRETY. REMAINS ON TUBE FEED AT GOAL RATE, WITH WATER FLUSHES. UPDATED SISTER ON POC, DENIES FURTHER QUESTIONS OR CONCERNS AT THIS TIME. WILL CONTINUE TO MONITOR.
[2018-11-20] VITALS (38 sets, daily range): BP systolic 90–180; BP diastolic 54–103
[2018-11-20 04:34] LABS: HEMATOCRIT 25.7 % (37.0-47.0); HEMOGLOBIN 8.7 gm/dL (12.0-15.0); MCH 32.7 pg (26.0-34.0); MCHC 33.9 g/dL (28.0-37.0); MCV 96.4 fL (80.0-100.0); RBC 2.66 mil/uL (4.20-5.00); RDW 16.3 % (10.5-14.5); WBC 18.7 thou/uL (4.0-11.0)
[2018-11-20 04:55] LABS: ALBUMIN 2.2 g/dL (3.4-5.0); CALCIUM 8.8 mg/dL (8.5-10.1); CREATININE 0.7 mg/dL (0.6-1.0); POTASSIUM 3.8 mmol/L (3.5-5.1); TOTAL BILIRUBIN 0.4 mg/dL (<0.1-1.0); TOTAL PROTEIN 6.6 g/dL (6.4-8.2)
[2018-11-20 05:04] LABS: METAMYELOCYTES 3 %
[2018-11-20 05:05] LABS: PLATELET COUNT 375 thou/uL (150-400)
[2018-11-20 05:06] LABS: ANISOCYTOSIS 1+; PLATELET ESTIMATE NORMAL; POLYCHROMASIA 1+
[2018-11-20 05:07] LABS: BE(vivo) 4.1 mmol/L (-2 to +3); HCO3 29.3 mmol/L (22.0-26.0); PCO2 47.8 mmHg (35.0-45.0); PO2 68.2 mmHg (80.0-100.0); pH 7.406 (7.360-7.450); sO2 93.6 % (92.0-98.0)
--- NOTE | 2018-11-20 08:18 | NUR ---
PT INTUBATED AND ON VENT. PROPOFOL, PRECEDEX, AND VERSED GTTS FOR SEDATION. PROPOFOL GTT TITRATED DOWN OVERNIGHT AND OFF BY THIS MORNING. PRECEDEX GTT ALSO TITRATED DOWN, PT TOLERATING WELL AND REMAINING CALM. PT MOVES ALL EXTREMITIES SPONTANEOUSLY, BUT NOT TO COMMAND. SUCTIONED LARGE AMOUNT OF SECRETIONS FROM ET TUBE. PT'S BREATHING CONTINUES TO BE LABORED AND IS TACHYPNEIC AT TIMES. WILL CONTINUE TO MONITOR.
--- NOTE | 2018-11-20 09:33 | NUR ---
Pt is receiving >4 L per day of fluids from IVF/water flushes/TF. Recommend discontinue IVF. Recommend advance tube feeding to new goal 70ml/hr since propofol discontinued
--- NOTE | 2018-11-20 16:37 | NUR ---
PT IS AWAKE AND RESTLESS AND TIMES AND AGITATED AT TIMES. ON SEDATION PROPOFOL TURNED ON PT WAS KICKING AND RESTRATINED. ATIVAN GIVEN TOO PT AT TIMES REMAINS RESTLESS. VERSED DRIP ON AT 6MG PER PUMP. SINUS TACHY ON THE MONITOR. BOWEL SOUNDS HYPOACTIVE. BOWEL MOVMENTS X2 BROWN AND LOOSE MODERATE TO LARGE STOOLS BATH DONE TODAY. SCD ON BILATERAL. CHÁVEZ TO DD WITH CLEAR YELLOW URINE. SUCTION MODERATE CLEAR SECREATIONS TODAY. REAMINS ON THE VENT. CLONIDINE GIVEN FOR ELEVATED BLOOD PRESSURE WILL CONTINUE TO ASSESS AND MONITOR PER NURSING
[2018-11-21] VITALS (25 sets, daily range): BP systolic 86–144; BP diastolic 43–86
--- NOTE | 2018-11-21 07:35 | NUR ---
PT INTUBATED AND ON VENT. SEDATED WITH PROPOFOL AND VERSED GTTS FOR VENT MANAGMENT. PROPOFOL TITRATED UP PRN FOR INCREASED RESTLESSNESS/AGITATION. FENTANYL GIVEN X1. PT MOVES ALL EXTREMITIES SPONTANEOUSLY, BUT DOES NOT FOLLOW COMMANDS. PT OPENED EYES WHEN STIMULATED, BUT DID NOT TRACK AND STARED AT THE CEILING. PT TOLERATING TUBE FEEDINGS AT GOAL RATE; NO RESIDUALS. PT HAD A LARGE AMOUNT OF THICK SECRETIONS SUCTIONED FROM ET TUBE. SECRETIONS WERE BLOOD-TINGED THIS MORNING. WILL CONTINUE TO MONITOR.
[2018-11-21 08:31] LABS: BE(vivo) 7.9 mmol/L (-2 to +3); HCO3 33.8 mmol/L (22.0-26.0); PCO2 56.2 mmHg (35.0-45.0); PO2 90.3 mmHg (80.0-100.0); pH 7.397 (7.360-7.450); sO2 96.7 % (92.0-98.0)
--- NOTE | 2018-11-21 15:06 | NUR ---
PT REMAINS ON SEDATION AT TIMES CAN GET RESTESS. LUNGS ARE CLEAR TO COARSE. SUCTION MODERATE OF SECREATION OUT OF HER. PT TRYIES TO COUND IT OUT TOLERATING TUBE FEEDING AT HER GOAL AND BOLUSES ARE DONE VERSED DRIP AIS AT 55MG. SKIN ORDRED. DENIES PAIN AT THIS TIME WIT ASSESSMENT, LIKES TO LISGEN TO THE RADIO. CALL LIGHT WIHIN REACH IF NEEDS ASITTANCE
[2018-11-22] VITALS (24 sets, daily range): BP systolic 91–180; BP diastolic 46–92
--- NOTE | 2018-11-22 04:09 | NUR ---
ASSUMED CARE OF PT. AT 1900. PT. IS INCREASINGLY RESTLESS AND GAGGING ON ET TUBE. PROPOFOL INCREASED AND ATIVAN X2 GIVEN. PT. HAD X1 BM. PT. CONTINUES TO BE ON VENT WITH SAME SETTINGS. PLAN OF CARE IS TO MAINTAIN OXYGENTATION WITH VENTILATION. ASSESSMENTS AND VITALS CHARTED. MEDICATION TITRATION CHARTED. WILL CONTINUE TO MONITOR.
[2018-11-22 05:00] LABS: ALBUMIN 1.8 g/dL (3.4-5.0); ANION GAP 4 mmol/L (7-16); BUN 27 mg/dL (7-18); CALCIUM 8.7 mg/dL (8.5-10.1); CHLORIDE 101 mmol/L (98-107); CO2 39 mmol/L (21-32); CREATININE 0.7 mg/dL (0.6-1.0); GLUCOSE 135 mg/dL (74-106); POTASSIUM 3.5 mmol/L (3.5-5.1); SGOT 26 U/L (15-37); SGPT 63 U/L (30-65); SODIUM 144 mmol/L (136-145); TOTAL BILIRUBIN 0.3 mg/dL (<0.1-1.0); TOTAL PROTEIN 5.9 g/dL (6.4-8.2); TROPONIN-I <0.06 ng/mL (<0.06)
[2018-11-22 09:00] LABS: BE(vivo) 13.1 mmol/L (-2 to +3); HCO3 38.8 mmol/L (22.0-26.0); PCO2 54.3 mmHg (35.0-45.0); PO2 82.6 mmHg (80.0-100.0); pH 7.472 (7.360-7.450); sO2 96.5 % (92.0-98.0)
--- NOTE | 2018-11-22 09:29 | HC ---
[facility] [place] [address] CONSULTATION Name: PAUL LOGAN Room #: [facility] IN ..#: [id number] Admission: 11/10/18 ������������������ Attend Phys: Federico Shirley MD Discharge: ������������������ Date of : 62 Report #: [id number] THIS REPORT FOR: //name// CC: Federico WOMACK unknown DATE OF SERVICE: 11/21/2018 TYPE OF REPORT: Infectious disease consultation. REASON FOR CONSULTATION: I was asked to evaluate concerning bilateral pulmonary infiltrates, respiratory failure and leukocytosis. HISTORY OF PRESENT ILLNESS: The patient is a 57-year old known bipolar disorder and alcohol use. Presents on 11/10/2018 after a fall and suffering left-sided rib fractures. She then developed further delirium and respiratory failure, requiring intubation and mechanical ventilation. She has been difficult to control her delirium. She is on fairly high doses of sedation. She is on FiO2 of 50%. She did undergo a bronchoscopy on 11/18/2018. I am awaiting these cultures. Previous cultures at the time of her intubation have grown methicillin-susceptible Staph aureus. She has been treated with Zosyn and vancomycin during her hospital course. No fever or chills noted. Hemodynamically, has been stable. Small amount of tracheal secretions. Chest x-ray showed persistent bilateral infiltrates, perihilar and basilar in nature. She has had no GI or issues. She has had good urine output, has a Chowdary catheter in place. She has a right upper extremity PICC, which is functioning well. She is tolerating her OG tube feedings. There have been no rashes or decubiti. REVIEW OF SYSTEMS: A 10-point review of systems was otherwise negative. The patient was unable to give any further details. She was sedated on the ventilator. ALLERGIES: None. MEDICATIONS: As noted on her MAR including clonazepam, bupropion, Zestril and Coreg at home. Now on Solu-Medrol, vancomycin and Zosyn. Other medications as noted. PAST MEDICAL HISTORY: Bipolar disorder, attention deficit disorder, borderline personality disorder and hypertension. PAST SURGICAL HISTORY: Arthroscopic jaw surgeries. FAMILY HISTORY: Noncontributory. [facility] [address] [place] [address] CONSULTATION Name: PAUL LOGAN Room #: 241-P [facility] IN ..#: [id number] Admission: 11/10/18 ������������������ Attend Phys: Federico Shirley MD Discharge: ������������������ Date of : 62 Report #: [id number] SOCIAL HISTORY: She is a smoker and alcohol use. PHYSICAL EXAMINATION: VITAL SIGNS: She is afebrile, blood pressure was 109/66 and heart rate 93. GENERAL: She was arousable and able to move all extremities. SKIN: Without rash or decubitus. HEENT: Eyes, without scleral icterus. No oral mucosal lesions. NECK: Supple. No palpable adenopathy. LUNGS: Coarse bilaterally. HEART: Regular, without murmur, gallop or rub. ABDOMEN: Soft and nontender with no hepatosplenomegaly or mass. GENITOURINARY: External genitalia without lesion or mass with indwelling Chowdary catheter. RECTAL: Not performed. EXTREMITIES: Without clubbing, cyanosis or edema. NEUROLOGICAL: Cranial nerves appeared intact. NECK: Supple. Strength normal in upper and lower extremities. The patient unable to comply with during of the neurologic examination. Unable to assess her psychiatric state. RADIOLOGICAL DATA: Chest x-ray, perihilar and bilateral basilar infiltrates. LABORATORY DATA: BNP was 1765. Sodium 145, potassium 2.8 and creatinine 0.7. Alkaline phosphatase 247, AST 55, ALT 111 and bilirubin 0.4. Hemoglobin 8.7; platelet count 375,000 and white count 18.7 with 11% bands. Procalcitonin 0.2. Urinalysis unremarkable. ABGs on 50% FiO2 showed a pO2 of 90, pCO2 of 56 and pH 7.4. Blood cultures are negative. Urine culture showed E. coli sensitive to all drugs except ampicillin. A sputum culture, methicillin-susceptible Staph aureus. Bronchoscopy culture on 11/18/2018 is pending. IMPRESSION: 1. A 57-year-old with underlying bipolar disorder and alcohol use, presents with respiratory injury, left-sided rib fractures, respiratory failure, methicillin-susceptible Staphylococcus aureus pneumonia, possible component of aspiration; failure to improve despite aggressive care with corticosteroids and IV antibiotic therapy, which has been more than adequate to control a methicillin-susceptible Staphylococcus aureus. 2. Leukocytosis, cause of yet unclear if this is more related to her corticosteroids and recent bronchoscopy or to another issue developing. So far no evidence of urinary tract infection or colitis. 3. Anemia. 4. Bacteriuria, asymptomatic. 5. Bipolar disorder with current delirium. I am suspecting most likely related to her previous alcohol intake, but this will need to play out over time. RECOMMENDATIONS: Considering she just had a bronchoscopy and I am awaiting [facility] [address] [place] [address] CONSULTATION Name: PAUL LOGAN #: 241-P ADM IN M.R.#: [id number] Admission: 11/10/18 ������������������ Attend Phys: Federico Shirley MD Discharge: ������������������ Date of : 62 Report #: [id number] these cultures, we will plan to continue her vancomycin and Zosyn for the next 24-48 hours until these results are back. If these cultures are negative, then we would continue treatment for methicillin-susceptible Staph aureus as the patient continues on her ventilatory weaning program. Continue attempts at controlling her delirium. Follow serial chest x-rays and CBC. ��������������������������������������������� <ELECTRONICALLY SIGNED> ���������������������������������������� By: Lencho Cooper MD ��������������������������������������������� 11/22/18 0929 [id number] Lencho Cooper MD /nt
--- NOTE | 2018-11-22 18:06 | NUR ---
PT IS RESTLESS AWAKE ON 65MCG OF PROPOFOL AND VERSED AT 6MG INFUSING. RESPOSITION PT IN BED SEVERAL TIMES. PT TRIES KICKING EVEN WITH SEDATION ON BOARD AND REMAINS ON THE VENT. CHÁVEZ TO DD WITH CLEAR YELLOW URINE PRESENT. WRIST RESTRAINTS X2 BILATERAL. SCDS ON BILATERAL. TOLERATING TUBE FEEDS AT 50CC/HR NO RESIDUAL. SINUS RHYTHM ON THE EXTERMINATOR TERMITE. WILL CONTINUE TO ASSESS AND MONITOR PER NURSING
[2018-11-23] VITALS (24 sets, daily range): BP systolic 103–137; BP diastolic 51–81
[2018-11-23 04:54] LABS: HEMATOCRIT 25.8 % (37.0-47.0); HEMOGLOBIN 8.6 gm/dL (12.0-15.0); MCH 32.2 pg (26.0-34.0); MCHC 33.3 g/dL (28.0-37.0); MCV 96.6 fL (80.0-100.0); PLATELET COUNT 504 thou/uL (150-400); RBC 2.67 mil/uL (4.20-5.00); RDW 15.8 % (10.5-14.5); WBC 16.1 thou/uL (4.0-11.0)
[2018-11-23 05:11] LABS: ALBUMIN 2.2 g/dL (3.4-5.0); CALCIUM 9.5 mg/dL (8.5-10.1); CREATININE 0.8 mg/dL (0.6-1.0); MAGNESIUM 2.3 mg/dL (1.8-2.4); POTASSIUM 3.2 mmol/L (3.5-5.1); TOTAL BILIRUBIN 0.3 mg/dL (<0.1-1.0); TOTAL PROTEIN 6.6 g/dL (6.4-8.2)
[2018-11-23 05:28] LABS: ABSOLUTE NEUTROPHILS 14.8 thou/uL (1.4-8.2); MYELOCYTES 1 %
[2018-11-23 05:44] LABS: BE(vivo) 9.7 mmol/L (-2 to +3); HCO3 34.2 mmol/L (22.0-26.0); PCO2 46.7 mmHg (35.0-45.0); PO2 89.6 mmHg (80.0-100.0); pH 7.483 (7.360-7.450); sO2 97.3 % (92.0-98.0)
--- NOTE | 2018-11-23 07:58 | NUR ---
PT INTUBATED AND ON VENT. SEDATED WITH PROPOFOL AND VERSED GTTS. PT EXTREMELY RESTLESS AND AGITATED AT THE BEGINNIGN OF THE NIGHT. PROPOFOL GTT INCREASED AND HALDOL GIVEN. PT WAS STILL EASILY STIMULATED, BUT MORE APPROPRIATELY SEDATED FOR VENT MANAGEMENT. PT WAS NO LONGER IN DISTRESS. PT CONTINUES TO MOVE ALL EXTREMITIES, BUT NOT TO COMMAND. POTASSIUM LOW THIS MORNING, REPLACEMENT INITIATED. WILL CONTINUE TO MONITOR.
--- NOTE | 2018-11-23 12:05 | NUR ---
SW reviewed chart and spoke with nursing and attending physician. Pt remains intubated and sedated. Pt is in bilateral wrist restraints. Pt to start vent weaning trials soon. Per nursing, pt's sister, Meghan, has called to check on pt and has visited. SW requested nursing to provide Meghan with SW's contact info for assistance with completing SW assessment and discharge planning. SW is following to assist as needed with discharge planning.
[2018-11-23 15:26] LABS: BE(vivo) 11.2 mmol/L (-2 to +3); HCO3 35.6 mmol/L (22.0-26.0); PCO2 46.5 mmHg (35.0-45.0); PO2 97.1 mmHg (80.0-100.0); pH 7.502 (7.360-7.450); sO2 97.8 % (92.0-98.0)
[2018-11-24] VITALS (23 sets, daily range): BP systolic 88–156; BP diastolic 50–90
[2018-11-24 05:32] LABS: ALBUMIN 2.4 g/dL (3.4-5.0); ANION GAP 7 mmol/L (7-16); BUN 32 mg/dL (7-18); CALCIUM 8.7 mg/dL (8.5-10.1); CHLORIDE 101 mmol/L (98-107); CO2 34 mmol/L (21-32); CREATININE 0.7 mg/dL (0.6-1.0); GLUCOSE 146 mg/dL (74-106); PHOSPHORUS 4.9 mg/dL (2.5-4.9); POTASSIUM 3.4 mmol/L (3.5-5.1); SODIUM 142 mmol/L (136-145); TROPONIN-I <0.06 ng/mL (<0.06)
--- NOTE | 2018-11-24 05:38 | NUR ---
STILL RESTLESS THROUGHOUT NIGHT. ASSESSMENT CHARTED. NO SIGNFICANT CHANGES. PLAN ARE TO WEEN OFF SEDATION AND EVENTUALLY EXTUBATE. CONTINUE WITH PLAN OF CARE
--- NOTE | 2018-11-24 10:45 | NUR ---
SHIRLEY was provided with contact info for pt's sister, Meghan ([phone]) and son, Darrian Ansari ([phone]). SHIRLEY reviewed chart and spoke with nursing. Plan is to hopefully extubate pt today. SHIRLEY left voice message for pt's sister. Awaiting call back at this time. SHIRLEY is following to assist as needed with discharge planning.
[2018-11-24 11:42] LABS: BE(vivo) 9.8 mmol/L (-2 to +3); HCO3 34.8 mmol/L (22.0-26.0); PCO2 49.2 mmHg (35.0-45.0); PO2 96.9 mmHg (80.0-100.0); pH 7.467 (7.360-7.450); sO2 97.6 % (92.0-98.0)
[2018-11-25] VITALS (14 sets, daily range): BP systolic 124–162; BP diastolic 71–111
--- NOTE | 2018-11-25 05:04 | NUR ---
PT APPEARS TO BE SLEEPING NOW. PT HAS BEEN AGITATED AND RESTLESS THROUGHOUT SHIFT. PT CONFUSED AND IMPULSIVE. PT SR ON MONITOR. REMAINS ON OXYGEN VIA NC AT 4L CURRENTLY. PT TO HAVE SPEECH EVAL TODAY.
--- NOTE | 2018-11-25 11:50 | NUR ---
VASCULAR ACCESS NURSE ROUNDING. SEVERAL IV MEDS DISCONTINUED IN THE PAST 24 HOURS. THIS PATIENT CONTINUES ON 1 IV ANTIBIOTIC, STERIODS AND PRN IV MEDS. IF THE PATIENT CONTINUES TO PROGRESS TOWARD GOAL, RECOMMEND PIV OR MIDLINE PLACEMENT AND PICC REMOVAL IF THE PRIMARY MD APPROVES TO DECREASE INFECTION RISKS. WE WILL CONTINUE TO MONITOR SITE AND STATUS DAILY
[2018-11-25] MEDS ORDERED: ZESTRIL20 MG PO (15:59)
[2018-11-25] MEDS ORDERED: HYDROCHLOROTHIA25 M2 PO (16:00)
[2018-11-25] MEDS ORDERED: ZOLOFT50 MG PO (16:01)
--- NOTE | 2018-11-25 16:51 | NUR ---
PATIENT MOVED TO POD 3 TELEMETRY PATIENT. NURSE GAVE REPORT AND THEN TRANSFERED HER OVER THERE. FAMILY INFORMED. PATIENT OUT OF RESTRAINTS SHE IS IMPULSIVE AND QUITE RESTLESS, HOWEVER NOT PULLING AT LINES TODAY. SHE WAS ABLE TO EAT AND DRINK POST SPEECH THERAPY EVALUATION. SITTER REMAINS AT BEDSIDE. SHE HAS HAD MULIPLE LOOSE INCONTINENT STOOLS TODAY. SHE IS CLEARED TO TAKE ORAL PILLS. PLAN OF CARE IS TO CONTINUE TO HELP WITH REORIENTATION, VITAL SIGNS Q4 HOURS, ASSESSMENS Q4 HOURS, AND ENCOURAGE FOOD INTAKE.
--- NOTE | 2018-11-26 03:20 | NUR ---
ASSESSMENT: PT REMAIN ALERT AND ORIENT TIMES THREE, SOME FORGETFULNESS, 1:1 SITTER AT THE BEDSIDE. HAS NOT SHOWN ANY AGRESSIVE BEHAVIOR THIS SHIFT, HAS BEEN COOPERATIVE AND CALM. PRN PAIN MEDICATION GIVEN FOR LOWER BACK PAIN. TOLERATING PO INTAKE, NO BM THIS SHIFT. CHÁVEZ PRESENT AND WILL DC AT 0600. ADEQUATE AMTS OF UO. ON 3 LITERS NC, SATS 96% FAMILY MEMBERS VISITED FOR A SHORT WHILE AND DID NOT DISTURB PT. CONTINUAL PROGRESSION TOWARDS DC GOALS. WILL CONTINUE TO MONITOR.
[2018-11-26 04:09] VITALS: BP 116/74
[2018-11-26 04:24] LABS: HEMATOCRIT 26.1 % (37.0-47.0); MCH 32.7 pg (26.0-34.0); MCHC 34.5 g/dL (28.0-37.0); MCV 94.6 fL (80.0-100.0); RBC 2.75 mil/uL (4.20-5.00); RDW 14.8 % (10.5-14.5); WBC 12.3 thou/uL (4.0-11.0)
[2018-11-26 04:31] LABS: ALBUMIN 2.5 g/dL (3.4-5.0); CALCIUM 9.1 mg/dL (8.5-10.1); CREATININE 0.7 mg/dL (0.6-1.0); MAGNESIUM 2.1 mg/dL (1.8-2.4); TOTAL BILIRUBIN 0.4 mg/dL (<0.1-1.0); TOTAL PROTEIN 6.8 g/dL (6.4-8.2)
[2018-11-26 07:41] VITALS: BP 127/71
--- NOTE | 2018-11-26 15:04 | NUR ---
ASSUMED CARE OF PT AT APPROX 0700. PT IS ALERT AND ORIENTED TO SELF AND PLACE. UNCLEAR OF SITUATION BUT IS EASILY REORIENTED. PT FOLLOWS COMMANDS DENIES PAIN AND SOA. ABLE TO MAINTAIN 02 SAT >90 ON 02 VIA NC. EVEN NON LABORED BREATHING. ASSESSMENT CHARTED. PT UP TO CHAIR TODAY WITH PT. PT IS MAX ASSIST WITH GAITBELT AND WALKER BACK TO BED. COMPLAINS OF BACK PAIN THAT IS PARTIALLY RESOLVED WITH PRN MEDICATION. ASSESSMENT CHARTED. PT HAS BEEN UPDATED ON POC. POSSIBLE DC TO REHAB IN NEXT 1-2 DAYS. WILL CONTINUE TO MONITOR.
--- NOTE | 2018-11-26 17:18 | NUR ---
THERAPY WORKED WITH PT THIS DAY. [facility] ASSESSED AND INDICATED THAT THEY MIGHT BE ABLE TO ACCEPT PT ONCE SHE'S MEDICALLY STABLE. CM PROVIDED SUKHJINDER PT'S SISTER WITH UPDATED INDICATED THE ABOVE. CM TO FOLLOW UP WITH PT REGARDING DC NEEDS.
[2018-11-26 20:01] VITALS: BP 139/81
[2018-11-26 20:12] VITALS: BP 139/81
[2018-11-27 00:07] VITALS: BP 124/56
--- NOTE | 2018-11-27 03:19 | NUR ---
Pt with poor fluid intakes note. She hasn't void since I took over her cares. Bladder scan with only 105 ml per scanner. Notified , REVENUE DIRECTOR; new order for IVF. Will continue to monitor.
[2018-11-27 04:27] VITALS: BP 122/66
--- NOTE | 2018-11-27 06:00 | NUR ---
Pt is responding well to IVF. Increase more urine output notes.
[2018-11-27] MEDS ORDERED: CYCLOBENZAPRINE5 MG PO (08:37)
[2018-11-27] MEDS ORDERED: RISPERDAL 1 MG T1 MG PO (08:37)
[2018-11-27] MEDS ORDERED: VITAMIN B-1100 M2 PO (08:38)
[2018-11-27] MEDS ORDERED: CEFUROXIME500 MG PO (08:43)
--- NOTE | 2018-11-27 11:29 | NUR ---
Nutrition: Suggest restart of vitamin. Folate level low-3.6
--- NOTE | 2018-11-27 15:15 | NUR ---
ANTICIPATING PATIENT TO ADMIT TO [facility]/ACUTE REHAB OVER WEEKEND IF MEDICALLY STABLE AND WITHOUT A SITTER FOR 24 HOURS. IF PATIENT APPROPRIATE FOR ADMISSION CALL OG WELDER APPRENTICE CANAL STRUCTURE OPERATOR AT [phone].
--- NOTE | 2018-11-27 16:37 | NUR ---
[facility] IS FOLLOWING TO FOR POSSLBLE ADMISSION ONCE SITTER IS DISCONTINUED. SHOULD SITTER BE DC'D OVER WEEKEND AND PT BE MEDICALLY STABLE CONTACT CARE TEAM ON 5[facility] . CM TO FOLLOW INDICATED WITH DC PLANNING.
--- NOTE | 2018-11-27 18:46 | NUR ---
RECEIVED PT APPROX 1835. SITTER AT BEDSIDE. PT EATING DINNER NOTED COUGHING. UNSTEADY GAIT OBSERVED WHEN WALKING. WILL CONT. TO MONITOR.
[2018-11-27 19:42] VITALS: BP 145/74
--- NOTE | 2018-11-27 20:41 | NUR ---
PATIENT ALERT TO SELF BUT UNABLE TO STATE LOCATION AND DATE. NO VISITORS TODAY. SITTER IN ROOM DUE TO UNSTEADY GAIT AND IMPULSIVENESS. PATIENT INAPPROPIATE REMARKS DURING THE DAY AND STATES SHE WOULD LIKE TO GO HOME DESPITE THIS NURSE EXPLAINING SHE WOULD BE UNSAFE AT HOME. SPEECH PLACED PATIENT ON SWALLOW PRECAUTIONS WITH NECTER THICK LIQUIDS. PLAN IS EVENTUALLY TO DISCHARGE TO [facility] REHAB UNIT. PATIENT TRANSFERRED TO ROOM 430 AT END OF SHIFT AND REPORT GIVEN TO FLORIN MORENO.
--- NOTE | 2018-11-27 22:36 | NUR ---
PT ASSESSMENT COMPLETED. PT IS IRRITABLE. TRYING TO GET OUT OF BED. SHE IS WEAK. WANTS TO GO OUT TO SMOKE. TRIED TO GIVE HER SOME RISPERIDONE AND SHE REFUSED TO TAKE IT STATING "I DONT TRUST YOU AND YOUR FRIENDS". PT VOIDED X 1. NOT DRINKING MUCH, IVF RUNNING. BLOOD SUGAR OF 93. C/O L RIB PAIN, GIVEN SOME MUSCLE RELAXER. CONTINUES ON 1:1 CARE.
--- NOTE | 2018-11-28 04:18 | NUR ---
PT HAS NOT SLEPT THE WHOLE NIGHT. SHE HAS BECOME INCREASINGLY AGITATED, CONFUSED AND TRYING TO WRESTLE STAFF. SHE IS TRYING TO CHILD WELFARE MANAGER BED. IT IS BECOMING VERY UNSAFE/DANGEROUS. BHAVIN SOFT WRISTS RESTRAINTS APPLIED.SITTER STILL WITH PATIENT. O2/2L/NC APPLIED- PT SATTING IN THE 90-91% RANGE ON ROOM AIR. IVF INFUSING VIA YONATHAN. PT HAS BEEN INCONTINENT OF BLADDER SEVERAL TIMES.
--- NOTE | 2018-11-28 06:39 | NUR ---
SISTER SUKHJINDER NOTIFIED AT 0630 ABOUT PLACEMENT OF RESTRAINTS.
[2018-11-28 08:32] VITALS: BP 152/87
--- NOTE | 2018-11-28 12:00 | NUR ---
PT STILL TRYING TO GET OUT OF BED AND REMOVING RESTRAINT ON OTHER WRIST WHEN RESTRAINTS TEMPORARILY REMOVED ON ONE ARM. SITTER REMAINS AT BEDSIDE. NUTRITION BEING GIVEN Q2H AND NEEDED. BATH GIVEN BY ORACLE SOA DEVELOPER.
--- NOTE | 2018-11-28 16:46 | NUR ---
PT CALM AND REDIRECTABLE AT THIS TIME. TEMPORARY RELEASE OF RESTRAINTS- PT EATING AT THIS TIME. SITTER AT BEDSIDE. WILL MONITOR CLOSELY.
--- NOTE | 2018-11-28 18:49 | NUR ---
PT STILL ATTEMPTED TO GET OF THE BED AND PULLING RESTRAINTS OFF.
[2018-11-28 19:14] VITALS: BP 150/92
--- NOTE | 2018-11-29 00:29 | NUR ---
ASSESSMENT COMPLETED AT THE START OF SHIFT. PT WITH SITTER.BHAVIN WRIST RESTRAINTS TEMPORARILY REMOVED AT SHIFT CHANGE. PT ADVISED NOT TO TRY CLIMBING OUT OF BED. WITHIN 20MINS, I WAS CALLED IN ROOM BECAUSE PT COULD NOT STAY IN BED AND WAS BEGINNING TO MESS WITH IV SITE. I HAD TO REAPPLY THE RESTRAINTS. PT TOOK HS MEDS WITH NO PROBLEMS. SHE IS ALSO DRINKING OKAY.PT IS HOWEVER VERY RESTLESS AND HAS NOT SLEPT SINCE.TOTALLY INCONTINENT OF BLADDER.CONTINUALLY LIFTING LEGS OVER BEDRAIL. WILL CONTINUE MONITOR THROUGH THE SHIFT.
[2018-11-29 05:04] VITALS: BP 152/80
[2018-11-29 05:05] VITALS: BP 123/75
[2018-11-29 07:04] LABS: ALBUMIN 2.5 g/dL (3.4-5.0); CALCIUM 8.9 mg/dL (8.5-10.1); CREATININE 0.7 mg/dL (0.6-1.0); TOTAL BILIRUBIN 0.5 mg/dL (<0.1-1.0); TOTAL PROTEIN 6.3 g/dL (6.4-8.2)
[2018-11-29 07:11] LABS: POTASSIUM 2.8 mmol/L (3.5-5.1)
--- NOTE | 2018-11-29 07:30 | NUR ---
PATIENT HAD CRITICAL LAB VALUE.POTASSIUM K+ 2.8.PATIENT IS ALREADY ON PROTOCAL.WILL CONTINUE WITH K+ PROTOCAL, AND RECHECK WITHIN 4 HOURS OF LAST PO PILL
--- NOTE | 2018-11-29 09:59 | NUR ---
PATIENT CARE WAS ASSUMED AT 0715.PATIENT IS ALERT AND ORIENT ED TO SELF.PATIENT IS VERY CONFUSED.PATIENT IS CURRENTLY ON RESTRIANTS WITH A ONE ON ONE SITTER.PATIENT WAS SET UP FOR MEALS AND ABLE TO EAT.PT HAS PICC LINE INTACT, AND SALINE LOCKED.PT TAKES MEDS VERY WELL.CALL LIGHT,PHONE, AND PERSONAL BELONGINGS WITHIN REACH.
--- NOTE | 2018-11-29 12:54 | NUR ---
PATIENT HAS BEEN DOING WELL WITHOUT RESTRIANTS HAD OFF SINCE 1000.SITER IS STILL AT BEDSIDE.
[2018-11-29 15:00] VITALS: BP 140/68
[2018-11-29 19:26] VITALS: BP 144/97
--- NOTE | 2018-11-30 04:11 | NUR ---
ASSUMED CARE AROUND 1900. ALERT AND AWAKE. WILL NOT ANSWER ANY QUESTIONS AND WILL NOT ALLOW ANY PHYSICAL CONTACT. NO APPARENT PAIN NOTED. REFUSED BLOOD GLUCOSE MONITORING. NO S/S HYPOGLYCEMIA NOTED AT THIS TIME. VSS. INITIALLY REFUSED NIGHT MEDS. ANOTHER RN TRIED AND NATURAL GAS TECHNICIAN WAS SUCCESSFUL. AGITATION NOTED WHILE AWAKE. NO S/S ACUTE DISTRESS NOTED OR REPORTED AT THIS TIME. WILL CONT TO MONITOR FOR ANY CHANGES IN CONDITION.
[2018-11-30 05:04] VITALS: BP 138/82
[2018-11-30 05:38] LABS: ALBUMIN 2.4 g/dL (3.4-5.0); CALCIUM 8.8 mg/dL (8.5-10.1); CREATININE 0.8 mg/dL (0.6-1.0); PHOSPHORUS 4.6 mg/dL (2.5-4.9); POTASSIUM 3.5 mmol/L (3.5-5.1)
[2018-11-30] MEDS ORDERED: AUGMENTIN 875-1 EACH PO (09:20)
[2018-11-30 11:31] VITALS: BP 138/82
--- NOTE | 2018-11-30 16:00 | NUR ---
Received awake on bed. With Sitter at bedside. Due medications refused, tried several time to give to patient but still refused to take it- Dr Gavin informed. With 3 lumen PICC line at R Upper arm- only 1 lumen patent as handed over by night staff. Assisted in ADLs, slightly unsteady on her feet; on stand by assist. On blood sugar monitoring, taken and recorded. Pt to be transferred to 5S once stable as handed over. Pt refused to have head to toe assessment, vital signs stable, pt not in distress. Pt seen by Dr. Gaivn today, Pt for discharge, confirmed with CM if pt will be transferred to or to her home. As per CM, does not accept pts who has sitter. Called Dr Gavin to inform him that as per CM, will not accept her, pt refusing assessments to be done to her as well as refused to take medications, pt still unsteady on her gait- As per Dr Gavin to send patient home. fermenting cellars supervisor, Charge nurse aware that patient will be going home despite her status, and informed them of patient's situtaion. PICC line removed, pressure applied to site. Checked after for any bleeding- none noted. Checked again prior to discharge- dressing dry, clean and intact. Called pt's ALEX Doyle, informed that pt is for discharge; will fetch patient in a while. Discharge instructions, follow up schedule, prescriptions given to Merlin Doyle. Patient sent down to lobby via wheelchair with SERVICE AIDE, personal belongings taken with her with ALEX Doyle.
--- NOTE | 2018-11-30 17:09 | NUR ---
CARE TEAM INDICATED THAT PT IS MEDICALLY STABLE TO DC HOME THIS DAY. NO HOME HEALTH OR DME WAS ORDERED. PT WAS PROVIDED A [employer] [facility]ACK[facility] FOR FOLLOW UP CARES. PT WAS TRANSPORTED HOME BY HER SIGNIFICANT OTHER. CM CALLED AND NOTIFIED PT'S SISTER. NO OTHER CM INTERVENTION INDICATED. CASE CLOSED.
== END 2018-11-30 16:40 | disposition home or self-care (01) | DRG 207 ==
LOC: ER 16:37 → 2N 18:34 → ICU 18:34 → EROBS 18:34 → 2N 19:34 → ICU 11-12 19:49 → 4E 11-27 18:29 → ICU 11-27 18:29 → 4E 11-27 18:30 → 4W 11-28 15:52
PROVIDERS: Emergency Medicine; Hospitalist; Internal Medicine Pulmonary Disease; Nurse Practitioner Family; Pediatrics; ADMIT Hospitalist
PROC: 5A09357 Assistance with Respiratory Ventilation, Less than 24 Consecutive Hours, Continuous Positive Airway Pressure (ICD-10-PCS; principal; 2018-11-12)
PROC: 5A09357 Assistance with Respiratory Ventilation, Less than 24 Consecutive Hours, Continuous Positive Airway Pressure (ICD-10-PCS; 2018-11-13)
PROC: 0BH17EZ Insertion of Endotracheal Airway into Trachea, Via Natural or Artificial Opening (ICD-10-PCS; 2018-11-14)
PROC: 5A09357 Assistance with Respiratory Ventilation, Less than 24 Consecutive Hours, Continuous Positive Airway Pressure (ICD-10-PCS; 2018-11-14)
PROC: 02HV33Z Insertion of Infusion Device into Superior Vena Cava, Percutaneous Approach (ICD-10-PCS; 2018-11-14)
PROC: B548ZZA Ultrasonography of Superior Vena Cava, Guidance (ICD-10-PCS; 2018-11-14)
PROC: 5A1955Z Respiratory Ventilation, Greater than 96 Consecutive Hours (ICD-10-PCS; 2018-11-14)
PROC: 0B9G7ZX Drainage of Left Upper Lung Lobe, Via Natural or Artificial Opening, Diagnostic (ICD-10-PCS; 2018-11-18)
DX: J15.211 Pneumonia due to Methicillin susceptible Staphylococcus aureus (principal); J96.01 Acute respiratory failure with hypoxia; J96.02 Acute respiratory failure with hypercapnia; G92 Toxic encephalopathy; S22.42XA Multiple fractures of ribs, left side, initial encounter for closed fracture; E87.2 Acidosis; E86.0 Dehydration; F31.9 Bipolar disorder, unspecified; F90.9 Attention-deficit hyperactivity disorder, unspecified type; F41.9 Anxiety disorder, unspecified; F17.210 Nicotine dependence, cigarettes, uncomplicated; F60.3 Borderline personality disorder; D64.9 Anemia, unspecified; R41.0 Disorientation, unspecified; R82.71 Bacteriuria; D72.829 Elevated white blood cell count, unspecified; I50.9 Heart failure, unspecified; Z60.2 Problems related to living alone; R13.10 Dysphagia, unspecified; F10.10 Alcohol abuse, uncomplicated; Y90.9 Presence of alcohol in blood, level not specified; I11.0 Hypertensive heart disease with heart failure; W01.0XXA Fall on same level from slipping, tripping and stumbling without subsequent striking against object, initial encounter; T40.605A Adverse effect of unspecified narcotics, initial encounter; R45.1 Restlessness and agitation; E83.42 Hypomagnesemia; E87.6 Hypokalemia; Z79.899 Other long term (current) drug therapy; Y93.89 Activity, other specified; Y92.89 Other specified places as the place of occurrence of the external cause; Y99.8 Other external cause status; Z88.6 Allergy status to analgesic agent
CPT/HCPCS: 10040; 10045; 10078; 10081; 10203; 10783; 27000

== ENCOUNTER 2020-01-24 15:35 | Emergency (ER) | payer OTHER ==
[~2020-01-24] VITALS: Ht 172.7 cm; Wt 77.1 kg
[~2020-01-24 15:35] MED LIST changes: +AUGMENTIN 875-1 EACH PO; +CEFUROXIME500 MG PO; +CYCLOBENZAPRINE5 MG PO; +HYDROCHLOROTHIA25 M2 PO; +LISINOPRIL10 MG PO; +RISPERDAL 1 MG T1 MG PO; +VITAMIN B-1100 M2 PO; +ZESTRIL20 MG PO; +ZOLOFT25 MG PO; +ZOLOFT50 MG PO
[2020-01-24 17:47] LABS: ABSOLUTE NEUTROPHILS 5.8 thou/uL (1.4-8.2); BASOPHILS 0.9 % (0.0-2.0); EOSINOPHILS 0.9 % (0.0-3.0); HEMOGLOBIN 13.8 gm/dL (12.0-15.0); LYMPHOCYTES 20.4 % (24.0-44.0); MCHC 34.5 g/dL (28.0-37.0); MCV 98.7 fL (80.0-100.0); MONOCYTES 6.4 % (1.0-8.0); PLATELET COUNT 224 thou/uL (150-400); POLYS 71.4 % (36.0-66.0); RBC 4.05 mil/uL (4.20-5.00); RDW 15.9 % (10.5-14.5); WBC 8.1 thou/uL (4.0-11.0)
[2020-01-24 17:57] LABS: ANION GAP 13 mmol/L (7-16); BUN 23 mg/dL (7-18); CALCIUM 9.3 mg/dL (8.5-10.1); CHLORIDE 101 mmol/L (98-107); CO2 24 mmol/L (21-32); CREATININE 1.2 mg/dL (0.6-1.0); GLUCOSE 116 mg/dL (74-106); POTASSIUM 3.6 mmol/L (3.5-5.1); SODIUM 138 mmol/L (136-145)
[2020-01-24 18:07] LABS: TROPONIN-I <0.06 ng/mL (<0.06)
[2020-01-24] MEDS ORDERED: SERTRALINE HCL100 MG PO (18:25)
[2020-01-24] MEDS ORDERED: PRINIVIL20 M1 PO (18:25)
[2020-01-24] MEDS ORDERED: LIDOCAINE1 EACH TRANSDERM (20:16)
[2020-01-24] MEDS ORDERED: NAPROSYN500 MG PO (20:16)
[2020-01-24] MEDS ORDERED: NORCO 5-325 TA1 EAC2 PO (20:16)
[2020-01-24 20:19] VITALS: BP 132/76
--- NOTE | 2020-01-25 07:59 | EKG ---
[facility] [place] [address] ELECTROCARDIOGRAM REPORT Name: PAUL LOGAN Room #: DEP [facility]#: [id number] Admission: 01/24/20 Attend Phys: Discharge: 01/24/20 Date of : 62 Report #: [id number] THIS REPORT FOR: cc: VU - Criselda family physician/PCP VU - Criselda family physician/PCP Jori Castellanos MD [facility] THIS REPORT FOR: //name// [facility] ED Test Date: 2020-01-24 Test Time: 16:46:58 Pat Name: PAUL LOGAN Department: Room: Gender: F Official Court Reporter: [facility] : 1960 Requested By: Taran Villa Order Number: [id number] MD: Jori Castellanos Measurements Intervals [place] Rate: 82 P: 57 IN: 162 QRS: -38 QRSD: 109 T: 74 QT: 394 QTc: 461 Interpretive Statements Sinus rhythm Probable left atrial enlargement Left axis deviation Abnormal R-wave progression, late transition Borderline T abnormalities, anterior leads Compared to ECG 11/10/2018 17:42:05 Left-axis deviation now present Electronically Signed On 01-25-2020 7:59:16 CDT by Jori Castellanos [email or web address] <ELECTRONICALLY SIGNED> By: Jori Castellanos MD, [facility] 01/25/20 [id number] Jori Castellanos MD, [facility] /EPI
== END 2020-01-24 20:19 | disposition home or self-care (01) ==
LOC: ER 15:35
PROVIDERS: Emergency Medicine
DX: R07.89 Other chest pain (principal); R06.00 Dyspnea, unspecified; I10 Essential (primary) hypertension; F17.210 Nicotine dependence, cigarettes, uncomplicated; Z20.828 Contact with and (suspected) exposure to other viral communicable diseases; Z79.899 Other long term (current) drug therapy; Z88.5 Allergy status to narcotic agent